=== PATIENT | female | born 1955 | race Caucasian/White ===

== ENCOUNTER 2023-10-05 12:38 | Inpatient (IN) | payer MEDICARE, OTHER ==
[2023-10-05 13:15] LABS: #Basophils 0.1 thou/uL (0.0-0.2); #Eosinphils 0.4 thou/uL (0.0-0.7); #Monocytes 0.7 thou/uL (0.11-0.59); #Neutrophils 8.6 thou/uL (1.40-6.50); %Basophils 0.8 % (0.0-1.0); %Eosinophils 3.2 % (0.0-10.0); %Lymphocytes 16.4 % (21.0-51.0); %Monocytes 6.2 % (0.0-10.0); %Neutrophils 72.7 % (42.0-75.0); Hematocrit 47.3 % (36.0-47.0); Hemoglobin 15.3 g/dL (12.0-16.0); Mean Corpuscular HGB CONC 32.3 g/dL (32.0-36.0); Mean Corpuscular Volume 92.7 fl (78.0-98.0); Mean Platelet Volume 9.3 fL (7.4-10.4); Platelet Count 291 10x3/uL (130-400); White Blood Cell (WBC) Count 11.8 10x3/uL (4.8-10.8)
[2023-10-05 13:36] LABS: ALT (SGPT) 12 U/L (8-55); AST (SGOT) 13 U/L (5-34); Albumin 3.8 g/dL (3.4-4.8); Alkaline Phosphatase 88 U/L (40-110); Anion Gap 16 mmol/L (10-20); BUN (Urea Nitrogen) 10 mg/dL (9.8-20.1); Bilirubin, Total 0.6 mg/dL (0.2-1.2); Calc. Creatinine Clearance 0 mL/min (70-130); Calcium 9.5 mg/dL (7.8-10.44); Carbon Dioxide 26 mmol/L (23-31); Chloride 105 mmol/L (98-107); Estimated GFR 69; Globulin 3.9 g/dL (2.4-3.5); Glucose 114 mg/dL (80-115); Potassium 4.8 mmol/L (3.5-5.1); Protein, Total 7.7 g/dL (5.8-8.1); Sodium 142 mmol/L (136-145)
[2023-10-05 13:40] LABS: Troponin I 0.015 ng/mL (< 0.028)
[2023-10-05 14:00] LABS: Magnesium 2.1 mg/dL (1.6-2.6)
[2023-10-05] MEDS ORDERED: hydrALAZINE 25 MG TAB ONE (15:29)
[2023-10-05] MEDS ORDERED: Ondansetron ODT 4 MG TAB PO PRN (16:29)
[2023-10-05] MEDS ORDERED: Ondansetron PF 4 MG/2 ML Vial IVP PRN (16:29)
[2023-10-05] MEDS ORDERED: Albuterol 200 PUFF (6.7GM INHALER) INH PRN (16:33)
[2023-10-05 17:18] LABS: Troponin I 0.027 ng/mL (< 0.028)
[2023-10-05] MEDS ORDERED: Adenosine 6 mg (2 mL) VIAL ONE (19:44)
[2023-10-05] MEDS ORDERED: Metoprolol Tartrate 5 MG (5 mL) VIAL ONE (19:49)
[2023-10-05 20:37] LABS: Troponin I 0.027 ng/mL (< 0.028)
[2023-10-05 23:15] VITALS: BMI 40.0
[2023-10-05] MEDS ORDERED: Gabapentin 300 MG CAP PO SCH (23:45)
[2023-10-06] MEDS: Famotidine 20 MG TAB PO SCH ×3 (00:03→19:54)
[2023-10-06 03:54] LABS: #Basophils 0.1 thou/uL (0.0-0.2); #Eosinphils 0.5 thou/uL (0.0-0.7); #Monocytes 0.9 thou/uL (0.11-0.59); #Neutrophils 8.7 thou/uL (1.40-6.50); %Basophils 0.7 % (0.0-1.0); %Eosinophils 3.5 % (0.0-10.0); %Lymphocytes 20.9 % (21.0-51.0); %Monocytes 7.2 % (0.0-10.0); %Neutrophils 67.2 % (42.0-75.0); Hemoglobin 14.2 g/dL (12.0-16.0); Mean Corpuscular HGB CONC 32.3 g/dL (32.0-36.0); Mean Corpuscular Hemoglobin 29.8 pg (27.0-31.0); Mean Corpuscular Volume 92.2 fl (78.0-98.0); Mean Platelet Volume 9.3 fL (7.4-10.4); Platelet Count 268 10x3/uL (130-400); Red Blood Cell (RBC) Count 4.77 mill/uL (4.20-5.40)
[2023-10-06 04:24] LABS: Anion Gap 11 mmol/L (10-20); BUN (Urea Nitrogen) 12 mg/dL (9.8-20.1); Calc. Creatinine Clearance 100 mL/min (70-130); Calcium 8.7 mg/dL (7.8-10.44); Carbon Dioxide 24 mmol/L (23-31); Chloride 108 mmol/L (98-107); Estimated GFR 74; Glucose 115 mg/dL (80-115); Potassium 3.8 mmol/L (3.5-5.1); Sodium 139 mmol/L (136-145)
[2023-10-06] MEDS: Enoxaparin 40 MG (0.4 mL) SYRINGE SC SCH (08:29)
[2023-10-06] MEDS: Losartan 25 MG TAB PO SCH (08:30)
[2023-10-06] MEDS: Gabapentin 300 MG CAP PO SCH ×4 (08:30→19:54)
[2023-10-06] MEDS: Acetaminophen 325 MG TAB PO PRN ×2 (08:30→17:11)
[2023-10-06] MEDS ORDERED: FLU VACC QS2023(65UP)/MF59C/PF 60 MCG/0.5 ML SYRINGE IM ONE (09:00)
[2023-10-06] MEDS: HYDROcodone/Acetaminophen 10/325 mg Tablet PO PRN (19:54)
[2023-10-07] MEDS: Famotidine 20 MG TAB PO SCH ×2 (09:03→20:00)
[2023-10-07] MEDS: HYDROcodone/Acetaminophen 10/325 mg Tablet PO PRN ×2 (09:03→20:03)
[2023-10-07] MEDS: Gabapentin 300 MG CAP PO SCH ×4 (09:03→20:00)
[2023-10-07] MEDS: Enoxaparin 40 MG (0.4 mL) SYRINGE SC SCH (09:04)
[2023-10-07] MEDS: Losartan 25 MG TAB PO SCH (09:04)
[2023-10-07] MEDS: Acetaminophen 325 MG TAB PO PRN (16:09)
[2023-10-07] MEDS ORDERED: Simethicone Chewable 80 MG TAB PO PRN (22:01)
[2023-10-08 04:32] LABS: #Basophils 0.1 thou/uL (0.0-0.2); #Eosinphils 0.4 thou/uL (0.0-0.7); #Monocytes 0.8 thou/uL (0.11-0.59); #Neutrophils 5.8 thou/uL (1.40-6.50); %Basophils 0.9 % (0.0-1.0); %Eosinophils 4.3 % (0.0-10.0); %Lymphocytes 24.2 % (21.0-51.0); %Monocytes 8.5 % (0.0-10.0); %Neutrophils 61.7 % (42.0-75.0); Hematocrit 42.1 % (36.0-47.0); Hemoglobin 13.6 g/dL (12.0-16.0); Mean Corpuscular HGB CONC 32.3 g/dL (32.0-36.0); Mean Corpuscular Volume 92.7 fl (78.0-98.0); Mean Platelet Volume 9.4 fL (7.4-10.4); Platelet Count 280 10x3/uL (130-400); RBC Distribution Width 13.1 % (11.5-14.5); Red Blood Cell (RBC) Count 4.54 mill/uL (4.20-5.40); White Blood Cell (WBC) Count 9.5 10x3/uL (4.8-10.8)
[2023-10-08 04:55] LABS: Anion Gap 11 mmol/L (10-20); BUN (Urea Nitrogen) 15 mg/dL (9.8-20.1); Calc. Creatinine Clearance 101 mL/min (70-130); Calcium 8.6 mg/dL (7.8-10.44); Carbon Dioxide 26 mmol/L (23-31); Chloride 105 mmol/L (98-107); Estimated GFR 75; Glucose 128 mg/dL (80-115); Potassium 4.1 mmol/L (3.5-5.1); Sodium 138 mmol/L (136-145)
[2023-10-08] MEDS: Gabapentin 300 MG CAP PO SCH ×4 (08:16→19:56)
[2023-10-08] MEDS: Losartan 25 MG TAB PO SCH (08:17)
[2023-10-08] MEDS: Famotidine 20 MG TAB PO SCH ×2 (08:17→19:56)
[2023-10-08] MEDS ORDERED: ESTRADIOL 10 MCG VG SCH (09:00)
[2023-10-08] MEDS ORDERED: Heparin 10,000 UNITS/ 10 ML VIAL ONE (11:22)
[2023-10-08] MEDS ORDERED: Famotidine/PF 20 mg/2ml Vial ONE ×2 (13:38→13:49)
[2023-10-08] MEDS ORDERED: SUGAMMADEX SODIUM 200 MG/2 ML VIAL ONE (13:49)
[2023-10-08] MEDS ORDERED: Lidocaine 2% 6 ML (Jelly) SYR ONE (13:49)
[2023-10-08] MEDS ORDERED: fentaNYL 50 mcg/mL 1 mL Vial ONE (13:49)
[2023-10-08] MEDS ORDERED: Rocuronium Bromide 10 MG/ML (10ML VIAL) ONE (14:01)
[2023-10-08] MEDS ORDERED: PROPOFOL 200 MG/20 ML VIAL ONE (14:01)
[2023-10-08] MEDS ORDERED: PHENYLEPHRINE-NS 100 MCG/ML 10 ML SYRINGE ONE (14:01)
[2023-10-08] MEDS ORDERED: Dexamethasone 20 MG/5 ML VIAL ONE (14:01)
[2023-10-08] MEDS ORDERED: Ondansetron HCl/PF 4 MG/2 ML Vial IVP PRN (14:34)
[2023-10-08] MEDS ORDERED: Promethazine HCl 25 MG/ML VIAL IM PRN (14:34)
[2023-10-08] MEDS: Acetaminophen 325 MG TAB PO PRN (17:20)
[2023-10-08] MEDS: HYDROcodone/Acetaminophen 10/325 mg Tablet PO PRN (17:25)
[2023-10-08] MEDS ORDERED: HYDROcodone/Acetaminophen 5/325 mg Tablet PO PRN ×2 (18:07)
[2023-10-09 08:10] VITALS: BP 144/73; TEMP 97.4
[2023-10-09] MEDS: Famotidine 20 MG TAB PO SCH (08:48)
[2023-10-09] MEDS: Losartan 25 MG TAB PO SCH (08:48)
[2023-10-09] MEDS: Gabapentin 300 MG CAP PO SCH (08:48)
== END 2023-10-09 11:30 | disposition home or self-care (01) | DRG 274 ==
LOC: ERS 12:38 → ERHOLD 15:23 → 2NO 22:38 → OBSVTOIN 10-06 13:48
PROVIDERS: ADMIT Internal Medicine; ATTEND Internal Medicine
PROC: 5A2204Z Restoration of Cardiac Rhythm, Single (ICD-10-PCS; principal; 2023-10-06)
PROC: 5A09357 Assistance with Respiratory Ventilation, Less than 24 Consecutive Hours, Continuous Positive Airway Pressure (ICD-10-PCS; 2023-10-06)
PROC: 02583ZZ Destruction of Conduction Mechanism, Percutaneous Approach (ICD-10-PCS; 2023-10-08)
PROC: 02K83ZZ Map Conduction Mechanism, Percutaneous Approach (ICD-10-PCS; 2023-10-08)
DX: I47.19 Other supraventricular tachycardia (principal); I45.2 Bifascicular block; I10 Essential (primary) hypertension; Z88.8 Allergy status to other drugs, medicaments and biological substances; Z88.5 Allergy status to narcotic agent; Z79.899 Other long term (current) drug therapy; G89.29 Other chronic pain; M54.9 Dorsalgia, unspecified; Z90.710 Acquired absence of both cervix and uterus; Z90.49 Acquired absence of other specified parts of digestive tract; Z98.890 Other specified postprocedural states; Z82.49 Family history of ischemic heart disease and other diseases of the circulatory system; I45.10 Unspecified right bundle-branch block; K21.9 Gastro-esophageal reflux disease without esophagitis
CPT/HCPCS: 36415; 80048; 80053; 83735; 84443; 84484; 85025; 93005; 93010; 93306; 93653; 96361; 96372; 96374; 96375; C1730; C1760; C1894; C2630; G0378; J0153; J1100; J1644; J1650; J2704; J3010; S0028